=== PATIENT | female | born 1975 | race Caucasian/White ===

== ENCOUNTER 2017-12-03 15:09 | Emergency (ER) | payer BC ==
[2017-12-03] MEDS ORDERED: MORPHINE SULFATE 10 MG/ML VIAL IVP ONE ×3 (15:22→19:04)
[2017-12-03] MEDS ORDERED: ONDANSETRON HCL IV 4 MG/2 ML VIAL IVP ONE (15:22)
[2017-12-03] MEDS ORDERED: 0.9 % SODIUM CHLORIDE 1,000 ML BAG IV ONE ×2 (15:22→18:01)
[2017-12-03] MEDS ORDERED: KETOROLAC 30 MG/ML VIAL IVP ONE ×2 (15:23→19:04)
--- NOTE | 2017-12-03 15:25 | Emergency Department Record ---
History of Present Illness - General Chief Complaint: Abdominal Pain Stated Complaint: abdominal pain Time Seen by Provider: 12/03/17 15:18 Source: Patient Mode of Arrival: Ambulatory Limitations: No limitations - History of Present Illness Initial Comments: 42 yo female presents with abdominal pain that started about 1pm. The pain is on the right side and radiates to the lower abdomen. She has some nausea but no vomiting. No diarrhea. She some very mild cramps early in the morning. No fever, rash, dysuria. She has had a tubal ligation and uterine ablation for past surgeries. She reports she was asymptomatic yesterday. MD Complaint: Abdominal pain Onset/Timin -: Hour(s) Location: RLQ Radiation: Back Migration to: R Flank, RLQ Severity: Severe Quality: Stabbing Consistency: Constant Improves With: Nothing Worsens With: Nothing Associated Symptoms: Denies other symptoms - Related Data Previous Rx's Medication Instructions Recorded Hydrocodone/Acetaminophen [[place] 1 tab PO Q8H PRN #10 tab 12/03/17 5mg/325mg] Allergies Allergy/AdvReac Type Severity Reaction Status Date / Time Penicillins Allergy PT UNSURE Verified 12/03/17 15:17 OF REACTION Travel Screening - Travel/Exposure Within Last 30 Days Have you traveled within the last 30 days?: No Review of Systems Constitutional: Denies: Chills, Fever, Malaise, Weakness Eyes: Denies: Eye discharge ENT: Denies: Congestion, Throat pain Respiratory: Denies: Cough Cardiovascular: Denies: Chest pain, Syncope Endocrine: Denies: Fatigue, Polydipsia, Polyuria Gastrointestinal: Reports: As per HPI, Abdominal pain, Nausea. Denies: Diarrhea , Vomiting Genitourinary: Denies: Dysuria, Urgency Musculoskeletal: Reports: Back pain. Denies: Arthralgia, Joint swelling, Myalgia Skin: Denies: Bruising, Change in color, Rash Neurological: Denies: Headache, Numbness, Weakness Psychiatric: Denies: Anxiety Hematological/Lymphatic: Denies: Blood Clots, Easy bleeding, Easy bruising Past Medical History - SOCIAL HISTORY Smoking Status: Current every day smoker Alcohol Use: None Drug Use: None - RESPIRATORY Hx Respiratory Disorders: No - CARDIOVASCULAR Hx Cardio Disorders: No - NEURO Hx Neuro Disorders: Yes Hx CVA: Yes (2008) Hx Headaches: Yes - GI Hx GI Disorders: No - Hx Genitourinary Disorders: No - ENDOCRINE Hx Endocrine Disorders: No - MUSCULOSKELETAL Hx Musculoskeletal Disorders: No - PSYCH Hx Psych Problems: Yes Hx Anxiety: Yes Hx Depression: Yes - HEMATOLOGY/ONCOLOGY Hx Hematology/Oncology Disorders: No Family Medical History Any Significant Family History?: No Family Hx Comment (NOT TO BE USED IN PLACE OF ITEMS BELOW): denies Physical Exam - General General Appearance: Alert, Oriented x3, Anxious, Other (Laying face down, not willing to roll over at this time.) Limitations: No limitations - Head Head exam: Normal inspection - Eye Eye exam: Normal appearance. negative: Conjunctival injection, Scleral icterus - ENT ENT exam: Normal exam, Mucous membranes moist Ear exam: Normal external inspection Nasal Exam: Normal inspection Mouth exam: Normal external inspection - Neck Neck exam: Normal inspection - Respiratory Respiratory exam: Normal lung sounds bilaterally. negative: Respiratory distress - Cardiovascular Cardiovascular Exam: Regular rate, Normal rhythm, Normal heart sounds - GI/Abdominal GI/Abdominal exam: Soft, Tenderness (mild on the right lower but very soft). negative: Distended, Guarding, Rebound, Rigid - Rectal Rectal exam: Deferred - exam: Adnexal tenderness (R), Vaginal bleeding (dark clotted), Vaginal discharge (dark, brownish). negative: Abnormal external exam, Adnexal mass (L) , Adnexal mass (R), Adnexal tenderness (L), cervical motion tenderness, Vaginal erythema - Extremities Extremities exam: Normal inspection. negative: Tenderness - Back Back exam: Reports: CVA tenderness (R). Denies: CVA tenderness (L), Paraspinal tenderness, Tenderness, Vertebral tenderness - Neurological Neurological exam: Alert, Oriented X3 - Psychiatric Psychiatric exam: Normal affect, Normal mood - Skin Skin exam: Dry, Intact, Normal color, Warm Course Vital Signs 12/03/17 15:14 Temperature 98.2 F Pulse Rate 105 H Respiratory 24 Rate Blood Pressure 98/64 Pulse Ox 99 - Reevaluation(s) Reevaluation #1: 12/03/17 16:03 The labs were reviewed No acute changes on the labs HCG is negative 12/03/17 16:06 Pain initially improved but returning. Additional Morphine ordered 12/03/17 16:20 UA with large blood 12/03/17 16:57 The patient's pain control has improved Waiting for the CT scan 12/03/17 17:[address] was read as bilateral intrarenal stones, normal appendix, no pelvic masses. 12/03/17 18:43 The Wet Prep is negative 12/03/17 18:57 The Prelim pelvic US was negative for acute process. Intact flow on the right, small subcentimeter follicle, nabothian cysts. The left ovary is non visualized but her pain has been on the right side. 12/03/17 19:05 The final read is pending. The pain is returning. I explained the CT and US do not definitely demonstrate a cause of her pain. I offered to OBV her for pain control and rechecks of her pain. She declines at this time. I explained that she will need to return or be seen again if the pain is not well controlled. 12/03/17 19:16 Medical Decision Making - Lab Data Result diagrams: 12/03/17 15:25 12/03/17 15:25 Disposition Disposition: Discharge Clinical Impression: Abdominal pain Qualifiers: Abdominal location: unspecified location Qualified Code(s): R10.9 - Unspecified abdominal pain Disposition: Home, Self-Care Condition: (1) Good Instructions: Abdominal Pain (ED) Additional Instructions: Take the prescriptions provided today as directed. Call your family doctor. Call to schedule the next available appointment for a recheck. Return to ED if your symptoms worsen or if you have any new concerns. Review the final Emergency Record and test results with your doctor on follow up You have been referred to [facility] Prescriptions: Hydrocodone/Acetaminophen [[place] 5mg/325mg] 1 tab PO Q8H PRN #10 tab PRN Reason: Pain - General Referrals: MARCELO VU D.O. [DOCTOR OF OSTEOPATH] - Forms: Patient Portal Access Time of Disposition: 18:43 Quality - Quality Measures Quality Measures: N/A - Blood Pressure Screening Does Patient Have Any of the Following: No Blood Pressure Classification: Normal BP Reading Systolic Measurement: 98 Diastolic Measurement: 64 Screening for High Blood Pressure: < Normal BP, F/U Not Required > [G8783]
[2017-12-03 15:31] LABS: BASO % 0.3 % (0-6); GRAN % 74.4 % (47-80); HEMATOCRIT 44.5 % (35.0-47.0); HEMOGLOBIN 14.4 gm/dl (11.6-16.0); LYMPH % 18.8 % (16-45); MEAN CELL VOLUME 100.7 fl (81-97); MEAN CORPUSCULAR HEMOGLOBIN 32.6 pg (27-33); MEAN CORPUSCULAR HGB CONC 32.4 g/dl (32-36); MEAN PLATELET VOLUME 9.7 fl (7.4-10.4); MONO % 4.5 % (0-9); PLATELET COUNT 293 K/uL (130-400); RED BLOOD COUNT 4.42 M/uL (3.80-5.40)
[2017-12-03 15:40] LABS: CREATININE 1.1 mg/dL (0.5-0.9)
[2017-12-03 15:41] LABS: BILIRUBIN,TOTAL 0.3 mg/dL (0.2-1.0); TOTAL PROTEIN 6.7 g/dL (6.6-8.7)
[2017-12-03 15:46] LABS: ALB/GLOB RATIO 1.3 (1.1-1.8); ALBUMIN 3.8 g/dL (4.0-5.0)
[2017-12-03 16:16] LABS: URINE APPEARANCE CLEAR; URINE BILIRUBIN NEGATIVE (NEGATIVE); URINE BLOOD LARGE (NEGATIVE); URINE COLOR YELLOW; URINE GLUCOSE (UA) NEGATIVE (NEGATIVE); URINE KETONE NEGATIVE (NEGATIVE); URINE LEUKOCYTE ESTERASE NEGATIVE (NEGATIVE); URINE NITRITE NEGATIVE (NEGATIVE); URINE PROTEIN NEGATIVE (NEGATIVE); URINE UROBILINOGEN 0.2 E.U./dL (0.20 - 1.00)
[2017-12-03 16:22] LABS: URINE BACTERIA FEW; URINE EPITHELIAL CELLS 16 - 20 (FEW); URINE WBC 0 - 2 (0-2/hpf)
[2017-12-03] MEDS ORDERED: HYDROCODONE/APAP 5/325MG TABLET PO ONE (18:43)
[2017-12-04 23:45] LABS: GC SPECIMEN TYPE Vaginal
--- NOTE | 2017-12-07 09:27 | CT SCAN REPORT ---
EXAM: CT OF THE ABDOMEN AND PELVIS WITHOUT CONTRAST HISTORY: LOWER ABDOMINAL PAIN. TECHNIQUE: Sequential axial images were obtained from the diaphragms through the ischiorectal fossa without intravenous or oral contrast administration. FINDINGS: No gross abnormalities within the liver. The gallbladder is contracted. The pancreas and spleen appear normal. The adrenal glands appear normal. There are nonobstructing calculi in both kidneys. No CT findings suggestive of obstructive uropathy. The urinary bladder appears normal. The uterus and adnexal structures are normal. The small bowel appears normal. The appendix is visualized and appears normal. No gross abnormalities within the colon. The osseous structures are normal. IMPRESSION: NONOBSTRUCTING CALCULI IN BOTH KIDNEYS. NO OBSTRUCTIVE UROPATHY. THE APPENDIX IS VISUALIZED AND APPEARS NORMAL. JOB NUMBER: [id number] MTDD
--- NOTE | 2017-12-07 09:32 | ULTRASOUND REPORT ---
EXAM: PELVIC ULTRASOUND WITH TRANSVAGINAL HISTORY: RIGHT SIDED ADNEXAL PAIN. TECHNIQUE: Transvaginal sonographic evaluation of the pelvis was performed using good scale imaging with the addition of Doppler and spectral analysis. FINDINGS: The uterus is normal in position. The uterus measures 7.3 x 4.0 x 4.0 cm. The endometrial stripe measures 7 mm. There is a small nabothian cyst in the lower uterine segment. There is a small cyst in the endometrium which may represent a polyp. This measures 3 mm x 3 mm x 7 mm. The right ovary measures 2.2 x 1.8 x 1.9 cm. There is normal follicular change. There is normal arterial and venous flow. The left ovary is not visualized. IMPRESSION: 1. 7 MM X 3 MM X 3 MM CYSTIC LESION IN THE ENDOCERVICAL CANAL. THIS MAY REPRESENT A SMALL POLYP. 2. NONVISUALIZATION OF THE LEFT OVARY. JOB NUMBER: [id number] MTDD
== END 2017-12-03 19:51 | disposition home or self-care (01) ==
LOC: ER 15:09
DX: N20.0 Calculus of kidney (principal); N75.0 Cyst of Bartholin's gland; F17.210 Nicotine dependence, cigarettes, uncomplicated
CPT/HCPCS: 74176; 76830; 76856; 80053; 81001; 84703; 85025; 87210; 96374; 96375; 96376; 99284; J1885; J2270; J2405; J7030

== ENCOUNTER 2019-03-22 19:07 | Emergency (ER) | payer BC ==
[2019-03-22] MEDS ORDERED: ORPHENADRINE CITRATE 60MG/2ML VIAL IVP ONE (19:32)
[2019-03-22] MEDS ORDERED: KETOROLAC 30 MG/ML VIAL IVP ONE (19:32)
--- NOTE | 2019-03-22 19:33 | Emergency Department Record ---
History of Present Illness - General Chief complaint: Pain Stated complaint: LEFT RIB PAIN Time Seen by Provider: 03/22/19 19:20 Source: Patient Mode of Arrival: Ambulatory - History of Present Illness Initial comments: The patient states she has had left rib pain since the day after Thanksgiving, 02-20-19, which was 4 week ago. She has a cough and clear rhinorrhea. The left r ib region from bra line down to her lower left lateral ribs hurts to touch and hurts when she coughs and breathes deep. She denies trauma to the area. She also denies fevers, chills or history of pneumonia. She has had a stroke in the past which causes vision loss temporarily in her left eye which left her with no obvious residual defecits. She is a smoker. She does not take control. Onset/Timin -: Month(s) Location: Left, Other Severity scale (1-10): 5 Quality: Stabbing Consistency: Getting worse Improves with: Immobilization Worsens with: Exertion, Walking, Other Associated Symptoms: Denies other symptoms - Related Data Previous Rx's Medication Instructions Recorded Cyclobenzaprine HCl [Flexeril] 10 mg PO TID #14 tablet 03/22/19 Allergies Allergy/AdvReac Type Severity Reaction Status Date / Time Penicillins Allergy PT UNSURE Verified 03/22/19 19:11 OF REACTION Travel Screening - Travel/Exposure Within Last 30 Days Have you traveled within the last 30 days?: No - Travel/Exposure Within Last Year Have you traveled outside the [place] in the last year?: No - Additonal Travel Details Have you been exposed to anyone with a communicable illness?: No - Travel Symptoms Symptom Screening: None Review of Systems Reviewed: No additional complaints except as noted below Constitutional: Reports: As per HPI. Denies: Chills, Fever, Malaise, Night sweats, Weakness, Weight change Eyes: Reports: As per HPI. Denies: Eye discharge, Eye pain, Photophobia, Vision change ENT: Reports: As per HPI. Denies: Congestion, Dental pain, Ear pain, Epistaxis, Hearing loss, Throat pain Respiratory: Reports: As per HPI. Denies: Cough, Dyspnea, Hemoptysis, Stridor, Wheezes Cardiovascular: Reports: As per HPI. Denies: Arrhythmia, Chest pain, Dyspnea on exertion, Edema, Murmurs, Orthopnea, Palpitations, Paroxysmal nocturnal dyspnea, Rheumatic Fever, Syncope Endocrine: Reports: As per HPI. Denies: Fatigue, Heat or cold intolerance, Polydipsia, Polyuria Gastrointestinal: Reports: As per HPI. Denies: Abdominal pain, Constipation, Diarrhea, Hematemesis, Hematochezia, Melena, Nausea, Vomiting Genitourinary: Reports: As per HPI. Denies: Abnormal menses, Discharge, Dyspareunia, Dysuria, Frequency, Hematuria, Incontinence, Retention, Urgency Musculoskeletal: Reports: As per HPI. Denies: Arthralgia, Back pain, Gout, Joint swelling, Myalgia, Neck pain Skin: Reports: As per HPI. Denies: Bruising, Change in color, Change in hair/nails, Lesions, Pruritus, Rash Neurological: Reports: As per HPI. Denies: Abnormal gait, Confusion, Headache, Numbness, Paresthesias, Seizure, Tingling, Tremors, Vertigo, Weakness Psychiatric: Reports: As per HPI. Denies: Anxiety, Auditory hallucinations, Depression, Homicidal thoughts, Suicidal thoughts, Visual hallucinations Hematological/Lymphatic: Reports: As per HPI. Denies: Anemia, Blood Clots, Easy bleeding, Easy bruising, Swollen glands Past Medical History - SOCIAL HISTORY Smoking Status: Current every day smoker Alcohol Use: Heavy Drug Use Detail:: Marijuana - RESPIRATORY Hx Respiratory Disorders: No - CARDIOVASCULAR Hx Cardio Disorders: No - NEURO Hx Neuro Disorders: Yes Hx CVA: Yes (2008) Hx Headaches: Yes - GI Hx GI Disorders: No - Hx Genitourinary Disorders: No - ENDOCRINE Hx Endocrine Disorders: No - MUSCULOSKELETAL Hx Musculoskeletal Disorders: No - PSYCH Hx Psych Problems: Yes Hx Anxiety: Yes Hx Depression: Yes - HEMATOLOGY/ONCOLOGY Hx Hematology/Oncology Disorders: No Family Medical History Any Significant Family History?: No Family Hx Comment (NOT TO BE USED IN PLACE OF ITEMS BELOW): denies Physical Exam - General General Appearance: Alert, Oriented x3, Cooperative, Mild distress (which worsens with movement.) - Head Head exam: Normal inspection - Eye Eye exam: Normal appearance, PERRL, EOMI. negative: Conjunctival injection, Nystagmus Pupils: Normal accommodation - ENT ENT exam: Normal exam, Mucous membranes moist, Normal external ear exam, Normal orophraynx, TM's normal bilaterally Ear exam: Normal external inspection. negative: External canal tenderness Nasal Exam: Normal inspection. negative: Discharge, Sinus tenderness Mouth exam: Normal external inspection, Tongue normal Teeth exam: Normal inspection. negative: Dental caries Throat exam: Normal inspection. negative: Tonsillar erythema, Tonsillar exudate - Neck Neck exam: Normal inspection, Full ROM. negative: Lymphadenopathy, Meningismus, Tenderness - Respiratory Respiratory exam: Normal lung sounds bilaterally, Chest wall tenderness (left lateral ribs diffusely with no skin lesions, no crepitance, or sub Q emphysema from under left axilla bra line down to left lower lateral ribs, not involving stomach.). negative: Respiratory distress - Cardiovascular Cardiovascular Exam: Regular rate, Normal rhythm, Normal heart sounds - GI/Abdominal GI/Abdominal exam: Soft, Normal bowel sounds. negative: Tenderness - Rectal Rectal exam: Deferred - exam: Deferred - Extremities Extremities exam: Normal inspection, Full ROM, Normal capillary refill. negative: Tenderness - Back Back exam: Reports: Normal inspection, Full ROM. Denies: Muscle spasm, Rash noted, Tenderness - Neurological Neurological exam: Alert, Normal gait, Oriented X3, Reflexes normal - Psychiatric Psychiatric exam: Normal affect, Normal mood - Skin Skin exam: Dry, Intact, Normal color, Warm Course Vital Signs 03/22/19 19:13 Temperature 98 F Pulse Rate [ 86 Pulse Ox Probe] Respiratory 22 Rate Blood Pressure 114/69 [Left Arm] Pulse Ox 98 - Reevaluation(s) Reevaluation #1: 03/22/19 21:04 Patient is slightly improved after orflex and toradol. Will send her home with a few days of flexeril Medical Decision Making - Management Options MDM Management: No Additional Work-up Planned - Data Complexity MDM Data: Labs Ordered and/or Reviewed (D dimer negative. serum negative.), X-Ray Ordered and/or Reviewed (CXR Negative for fracture or abnormality per radiologist.) Disposition Disposition: Discharge Clinical Impression: Rib pain on left side Disposition: Home, Self-Care Return To Work/School Note Provided: No Condition: (1) Good Instructions: Rib Contusion (ED) Additional Instructions: No lifting bending twisting. Splint ribs with a pillow when coughing for suport and comfort. Flexeril as directd if needed for muscle pain. Tylenol alternated wtih ibuprofen as directed as needed for pain. DC smoking with aide of your PCP. Prescriptions: Cyclobenzaprine HCl [Flexeril] 10 mg PO TID #14 tablet Quality - Quality Measures Quality Measures: N/A - Blood Pressure Screening Does Patient Have Any of the Following: No Blood Pressure Classification: Normal BP Reading Systolic Measurement: 114 Diastolic Measurement: 69 Screening for High Blood Pressure: < Normal BP, F/U Not Required > [G8783]
--- NOTE | 2019-03-22 20:45 | RADIOLOGY REPORT ---
EXAMINATION: Left Ribs with Frontal View Chest, Minimum Three Views EXAM DATE: 03/22/2019 8:40 PM TECHNIQUE: AP and oblique views of the left ribs with frontal view of the chest INDICATION: left rib pain laterally over 5-11th ribs COMPARISON: none ENCOUNTER: Initial FINDINGS: Chest: The heart, mediastinum and pulmonary vasculature are normal. No lung consolidation or pleu ral effusions are present. Left ribs: There is no acute rib fracture. There is no lytic or blastic bone lesion. IMPRESSION: Normal chest. No rib fractures. Dictated by: Mookie Morejon MD on 03/22/2019 8:41 PM. .
== END 2019-03-22 21:26 | disposition home or self-care (01) ==
LOC: ER 19:07
DX: R07.81 Pleurodynia (principal); F17.210 Nicotine dependence, cigarettes, uncomplicated
CPT/HCPCS: 99284 ×2; 96374; 96375; 84703; 85379; 71101; J1885; J2360